=== PATIENT | female | born 1940 | race Caucasian/White ===

== ENCOUNTER 2017-08-20 11:56 | Emergency (ER) | payer OTHER ==
[2017-08-20 12:03] VITALS: TEMP 98.2; BMI 26.6
--- NOTE | 2017-08-20 12:12 | PDOC ---
History of Present Illness - General Chief Complaint: Laceration Stated Complaint: s/p fall Time Seen by Provider: 08/20/17 11:59 History Source: Patient Exam Limitations: No Limitations - History of Present Illness Initial Comments: 08/20/17 13:16 76-year-old female with history of hypertension, hyperlipidemia on aspirin, facial twitch presents with mechanical fall. The patient is a [employer] and was visiting [facility]. She had a mechanical fall slipped on the concrete. Landed on her face and sustained approximately a 2 cm right eyebrow laceration and ecchymosis. No headache or loss of consciousness. Patient does take baby aspirin. Denies other injuries or pain and the patient was ambulatory. EMS was called and the patient was brought to the ED. Past History - Past Medical History Allergies/Adverse Reactions: Allergies Allergy/AdvReac Type Severity Reaction Status Date / Time No Known Allergies Allergy Verified 08/20/17 12:03 Home Medications: Ambulatory Orders Aspirin 81 mg PO DAILY 08/20/17 Atorvastatin Ca [Lipitor] 20 mg PO DAILY 08/20/17 Baclofen 10 mg PO TID 08/20/17 Ezetimibe/Simvastatin [Ezetimibe-Simvastatin 10-20 mg] 10 mg PO DAILY 08/20/17 Folic Acid 1 mg PO DAILY 08/20/17 Metoprolol Succinate 25 mg PO DAILY 08/20/17 Valsartan/Hydrochlorothiazide [Valsartan-Hctz 80-12.5 mg Tab] 80 mg PO DAILY - Suicide/Smoking/Psychosocial Hx Smoking History: Never smoked Hx Alcohol Use: No Drug/Substance Use Hx: No Review of Systems - Review of Systems Able to Perform ROS?: Yes Comments:: 08/20/17 13:17 GENERAL/CONSTITUTIONAL: No fever, weakness. HEAD, EYES, EARS, NOSE AND THROAT: No change in vision. No ear pain or discharge. No sore throat. CARDIOVASCULAR: No chest pain or shortness of breath. RESPIRATORY: No cough, wheezing, or hemoptysis. GASTROINTESTINAL: No abdominal pain, nausea, vomiting, diarrhea, or decreased PO intolerance. GENITOURINARY: No dysuria, frequency, or change in urination. MUSCULOSKELETAL: No joint or muscle swelling or pain. No neck or back pain. SKIN: Facial laceration NEUROLOGIC: No headache, vertigo, loss of consciousness, or change in strength/ sensation. ENDOCRINE: No increased thirst. No abnormal weight change. HEMATOLOGIC/LYMPHATIC: No anemia, easy bleeding, or history of blood clots. ALLERGIC/IMMUNOLOGIC: No hives or skin allergy. *Physical Exam - Vital Signs Last Vital Signs Temp Pulse Resp BP Pulse Ox 98.2 F 80 18 157/85 99 08/20/17 11:59 08/20/17 11:59 08/20/17 11:59 08/20/17 11:59 08/20/17 11:59 - Physical Exam Comments: 08/20/17 13:18 GENERAL: Awake, alert, and fully oriented, in no acute distress. HEAD: No signs of trauma EYES: PERRLA, EOMI, sclera anicteric, conjunctiva clear ENT: Auricles normal inspection, hearing grossly normal, nares patent, NECK: Normal ROM, supple. No c-spine tenderness EXTREMITIES: Normal range of motion, no edema. No clubbing or cyanosis. No cords, erythema, or tenderness NEUROLOGICAL: Cranial nerves II through XII grossly intact. Normal speech, normal gait SKIN: Warm, Dry, normal turgor, no rashes or lesions noted. ~2 cm superficial lateral right eyebrow. small ecchymosis. No stevens sign. no raccoon eyes. Procedures - Laceration/Wound Repair Right Face Wound Length: to 2.5 cm Wound Explored: clean Wound's Depth, Shape: superficial Irrigated w/ Saline: Yes Anesthesia: 1% Lidocaine Amount of Anesthetic (ccs): 1 Wound Debrided: minimal Wound Repaired With: Sutures Suture Size/Type: 5:0 Number of Sutures: 3 Layer Closure: No Sterile Dressing Applied: No Progress: 08/20/17 13:21 Wound was irrigated with 300 mL of normal saline under high pressure. 1 mL of 1% lidocaine without epinephrine was injected locally with excellent anesthesia. 3 5-0 nylon interrupted sutures were placed with excellent approximation. Thin-layer bacitracin applied. Scar precautions given. ED Treatment Course - RADIOLOGY Radiology Studies Ordered: Category Date Time Status HEAD CT WITHOUT CONTRAST [CT] Stat CT Scan 08/20/17 12:05 Ordered Medical Decision Making - Medical Decision Making 08/20/17 13:20 Vital Signs Temp Pulse Resp BP Pulse Ox 98.2 F 80 18 157/85 99 08/20/17 11:59 08/20/17 11:59 08/20/17 11:59 08/20/17 11:59 08/20/17 11:59 Patient status of tetanus is updated according to the patient. Wound was irrigated and 3 5-0 nylon interrupted sutures are placed with excellent approximation. Patient will need sutures removed in 5 days. We'll obtain head CT to rule out intracranial hemorrhage. If workup is negative, the patient can be discharged home. 08/20/17 13:[address] negative. Does show a meningioma. I had discussed this with the patient. The patient does have a history of this and has a neurologist in [facility] that is observing this. I instructed the patient to return to the ER in 5 days for suture removal. I discussed the physical exam findings, ancillary test results and final diagnoses with the patient. I answered all of the patient's questions. The patient was satisfied with the care received and felt comfortable with the discharge plan and treatment plan. The patient will call their primary care physician within 24 hours to arrange follow-up and will return to the Emergency Department with any new, persistant or worsening symptoms. *DC/Admit/Observation/Transfer Diagnosis at time of Disposition: Laceration Closed head injury Qualifiers: Encounter type: initial encounter Qualified Code(s): S09.90XA - Unspecified injury of head, initial encounter - Discharge Dispostion Disposition: HOME Condition at time of disposition: Stable Admit: No - Referrals - Patient Instructions Printed Discharge Instructions: DI for Closed Head Injury, DI for Laceration Repair Additional Instructions: You have been evaluated for a fall. Your CT head shows your old meningioma, but no other injuries. Please bring this copy to your doctor. You have 3 sutures placed. They need to be removed by your doctor or here in the ED in 5 days. To minimize scarring, minimize sun exposure. Apply a thin layer of bacitrain every 12 hours, cover with gauze. If you notice any redness or pus, please return to the ER as this may be infected. - Post Discharge Activity
[2017-08-20 13:51] VITALS: BP 140/70; PULSE 78
== END 2017-08-20 13:51 | disposition home or self-care (01) ==
LOC: FER 11:56
PROC: 0HQ1XZZ Repair Face Skin, External Approach (ICD-10-PCS; principal; 2017-08-20)
DX: S01.111A Laceration without foreign body of right eyelid and periocular area, initial encounter (principal); S09.90XA Unspecified injury of head, initial encounter; I10 Essential (primary) hypertension; E78.00 Pure hypercholesterolemia, unspecified; R25.3 Fasciculation; W01.0XXA Fall on same level from slipping, tripping and stumbling without subsequent striking against object, initial encounter; Y93.89 Activity, other specified; Y92.129 Unspecified place in nursing home as the place of occurrence of the external cause
CPT/HCPCS: 12011; 70450-TC; 99284-25